=== PATIENT | female | born 1965 | race Caucasian/White ===

== ENCOUNTER 2020-07-28 08:37 | Outpatient (REF) | payer MEDICARE, OTHER, SELFPAY | END 2020-07-28 08:38 | disposition home or self-care (01) | LOC: HO.HMGCLDS 08:37 | PROVIDERS: PCP Internal Medicine; Visit Provider Internal Medicine | DX: Z20.828 Contact with and (suspected) exposure to other viral communicable diseases (principal) | CPT/HCPCS: 87635 ==

== ENCOUNTER 2020-10-17 06:31 | Day surgery (SDC) | payer MEDICARE, OTHER, SELFPAY ==
[2020-10-11 09:45] VITALS: BMI 26.6
--- NOTE | 2020-10-14 08:40 | P.CONAN_ITS ---
Documented by User: Terra Pabon 10/14/20 08:41 HPI - Anesthesia Eval Consult details Narrative: 54yo F for Upper Endoscopy and Colonoscopy [facility] Past Medical History Medical History Arthritis Back pain Family history of abdominal aortic aneurysm (AAA) Family history of brain aneurysm GERD (gastroesophageal reflux disease) History of chronic pain History of postoperative nausea and vomiting Hx of renal calculi Kidney anomaly, congenital Lab test negative for COVID-19 virus Surgical History Surgical History History of bunionectomy History of endometrial ablation Hx of tubal ligation Social History Social History Alcohol intake: current Alcohol intake frequency: a few times a month Smoking Status: Former smoker Tobacco Type: Cigarette Smoked in Last 30 Days: No Smoking Quit Date: age 22 Use of substances other than those prescribed or required for medical reasons: No Advance Directives Information Provided: No Meds Allergies Allergy/AdvReac Type Severity Reaction Status Date / Time hydrocodone [From VICODIN] Allergy Severe HALLUCINATI Verified 10/11/20 10:03 ONS NARCOTICS Allergy Severe VOMITING Uncoded 06/16/20 15:49 opioids Allergy Severe Vomiting Uncoded 10/11/20 10:03 seasonal Allergy Intermediate Itchy Eyes Uncoded 10/11/20 10:03 Home Medications Medication Instructions Recorded Confirmed Type gabapentin 600 mg PO TID 10/11/20 10/11/20 History omeprazole 40 mg PO Q2D 10/11/20 10/11/20 History Exam Exam Date and Time: October 14, 2020 0840 Height,Weight and Vital Signs: Height 5 ft 4 in Weight 70.307 kg Assessment and Plan Assessment Anesthesia Assessment: Chart Reviewed Documented by User: Brendan Nichols 10/17/20 07:13 [facility] Past Medical History Medical History Arthritis Back pain Family history of abdominal aortic aneurysm (AAA) Family history of brain aneurysm GERD (gastroesophageal reflux disease) History of chronic pain History of postoperative nausea and vomiting Hx of renal calculi Kidney anomaly, congenital Lab test negative for COVID-19 virus Surgical History Surgical History History of bunionectomy History of endometrial ablation Hx of tubal ligation Social History Social History Alcohol intake: current Alcohol intake frequency: a few times a month Smoking Status: Former smoker Tobacco Type: Cigarette Smoked in Last 30 Days: No Smoking Quit Date: age 22 Use of substances other than those prescribed or required for medical reasons: No Advance Directives Information Provided: No Meds Allergies Allergy/AdvReac Type Severity Reaction Status Date / Time hydrocodone [From VICODIN] Allergy Severe HALLUCINATI Verified 10/11/20 10:03 ONS NARCOTICS Allergy Severe VOMITING Uncoded 06/16/20 15:49 opioids Allergy Severe Vomiting Uncoded 10/11/20 10:03 seasonal Allergy Intermediate Itchy Eyes Uncoded 10/11/20 10:03 Home Medications Medication Instructions Recorded Confirmed Type gabapentin 600 mg PO TID 10/11/20 10/11/20 History omeprazole 40 mg PO Q2D 10/11/20 10/11/20 History Exam Airway Mallampati Class: II TM Dist: >3cm Neck ROM: Full Loose/Missing/Broken Teeth: No Heart: rrr+s1s2 Lungs: cta b/l Assessment and Plan Assessment Anesthesia Assessment: Anesthesia Plan Discussed, PAT Visit and Chart Reviewed Final Anesthetic Review NPO: Yes ASA Class: II Final Preanesthetic Review: No Changes in Pt Med Stat, Meds/Allgs Chart Reviewed, Consent Obtained/Reviewed and Anes Risks/Benef Reviewed Patient Risk: Low Procedure Risk: Low Assessment/Block/Sedation in SS: Assess/Block/Sedation-SS Anesthetic Plan Anesthetic Plan: MAC: and Agree w/ Assess. and Plan Disposition: Standard PACU
[2020-10-17 07:01] VITALS: BP 114/79; PULSE 84; RESP 16; TEMP 36.2; O2SAT 97; BMI 25.7
[2020-10-17] MEDS: Lactated Ringers 1,000 ML 50 ML IVCONT (07:09)
[2020-10-17 08:25] VITALS: BP 116/72; PULSE 77; RESP 16; TEMP 36.1; O2SAT 100
--- NOTE | 2020-10-17 08:29 | PM.OP ---
Brief Operative Note Date of Service: 10/17/20 Pre-op diagnosis: GERD, Screening Post-op diagnosis: other (Hiatal hernia, Gastritis, Diverticulosis) Procedure: EGD with biopsies, Colonoscopy to cecum and TI Surgeon: Silvio Stauffer Anesthesia: MAC Estimated blood loss (mL): 3.0 Pathology: other (A. Gastric antrum B. EG JUnction at 36cm) Condition: stable Disposition: PACU
[2020-10-17 08:40] VITALS: BP 123/80; PULSE 72; RESP 17; TEMP 36.3; O2SAT 99
--- NOTE | 2020-10-17 08:57 | OP_ITS ---
SURGEON: Silvio Stauffer MD INDICATIONS: The patient presents for evaluation of gastroesophageal reflux and colorectal cancer screening. Full consent has been obtained from her for this, including risks of bleeding and perforation. PREOPERATIVE DIAGNOSIS: POSTOPERATIVE DIAGNOSIS: PROCEDURE PERFORMED: Esophagogastroduodenoscopy with biopsies and colonoscopy to cecum and terminal ileum. ESTIMATED BLOOD LOSS: COMPLICATIONS: ANESTHESIA: Monitored anesthesia care. ASSISTANTS: SPECIMENS: PREOPERATIVE DIAGNOSES: Colorectal cancer screening and gastroesophageal reflux. POSTOPERATIVE DIAGNOSES: Colorectal cancer screening and gastroesophageal reflux, small hiatal hernia, gastritis, diverticulosis, and internal hemorrhoids. DESCRIPTION OF PROCEDURE: The patient was placed in the left lateral decubitus position. The Olympus video gastroscope was passed in the posterior oropharynx and upper esophagus under direct vision. The scope was passed slowly into the distal esophagus. The gastroesophageal junction appeared at 36 cm. There was a very minimal irregularity, but no evidence of any esophagitis nor any definitive evidence of Negron's esophagus. The scope was advanced to the pylorus and duodenum was cannulated to the descending portion. The duodenum including the bulb appeared normal without mass or ulceration. The scope was withdrawn back in the stomach. The gastric antrum and body had changes consistent with gastritis with some areas of edema, mild friability, and some erythema. There is no evidence of any erosions or ulceration. There was good peristalsis. Biopsies were obtained from the antrum. The scope was retroflexed, visualizing the proximal stomach carefully, which appeared normal, without any sign of mass or ulceration. The scope was straightened and withdrawn back to the esophagus. A small hiatal hernia was visible. Biopsies were obtained at the EG junction at 36 cm. Proximal to this, the esophageal mucosa appeared normal. The scope was withdrawn from the patient. She was turned around for colonoscopy. The digital rectal exam revealed no abnormalities. The Olympus video pediatric colonoscope was entered into the rectum and advanced easily to the cecum. Once in the cecum, I did identify normal-appearing cecal pouch with appendiceal orifice and a normal-appearing ileocecal valve. The terminal ileum was cannulated and appeared normal. The scope was withdrawn back in the colon. The entire cecum and ileocecal valve appeared normal. The scope was slowly withdrawn assessing all mucosal surfaces carefully. Preparation was excellent. I did not visualize any sign of polyps, colitis, or angiodysplasia. There was a mild amount of sigmoid diverticulosis. In the rectum, scope was retroflexed visualizing minimal internal hemorrhoids, but no other pathology. The rectal mucosa appeared normal. The scope was straightened and withdrawn from the patient. She has tolerated the procedure well and was returned to the recovery area in stable condition. IMPRESSION: 1. Small hiatal hernia, gastroesophageal reflux. 2. Gastritis. 3. Diverticulosis. 4. Internal hemorrhoids. PLAN: The results of the biopsy will be checked. I have advised her to use her omeprazole on a daily basis to see if that gives her better symptomatic relief of her reflux. I do not think the H pylori, if it is present, would need to be treated unless she develops other upper GI symptoms. She was advised to stay off all aspirin and NSAIDs if possible. I would recommend a repeat colonoscopy in 10 years. I advised her to see me in 2 to 3 months for a followup visit. MD ABUNDIO Quesada/AMADA / [phone]
--- NOTE | 2020-10-17 09:23 | HO.POSTANES ---
Post Anesthesia Evaluation Post Anesthesia Evaluation Vital Signs: Vital Signs Temp Pulse Resp BP Pulse Ox 10/17/20 08:40 97.4 F 72 17 123/80 99 10/17/20 08:25 97.0 F 77 16 116/72 100 10/17/20 07:01 97.2 F 84 16 114/79 97 Anesthesia: Monitored Mental Status: Awake Pain Control: Satisfactory Nausea/Vomiting: None Hydration: Adequate Anesthesia-Related Issues: No Anes. Related Issues
== END 2020-10-17 09:06 | disposition home or self-care (01) ==
PROVIDERS: PCP Internal Medicine; Visit Provider Internal Medicine
PROC: (CPT 45378; principal; 2020-10-17 07:30)
DX: Z12.11 Encounter for screening for malignant neoplasm of colon (principal); K57.30 Diverticulosis of large intestine without perforation or abscess without bleeding; K64.8 Other hemorrhoids; K21.9 Gastro-esophageal reflux disease without esophagitis; K29.50 Unspecified chronic gastritis without bleeding; K44.9 Diaphragmatic hernia without obstruction or gangrene; G90.59 Complex regional pain syndrome I of other specified site; Q60.0 Renal agenesis, unilateral; Z79.899 Other long term (current) drug therapy; Z88.8 Allergy status to other drugs, medicaments and biological substances; Z87.891 Personal history of nicotine dependence
CPT/HCPCS: 45378; 43239; 88305; 88342; J1100; J2405

== ENCOUNTER 2020-11-09 15:53 | Outpatient (REF) | payer MEDICARE, OTHER, SELFPAY | END 2020-11-09 15:54 | disposition home or self-care (01) | LOC: HO.LAB 15:53 | PROVIDERS: Visit Provider Internal Medicine | DX: Z20.822 Contact with and (suspected) exposure to COVID-19 (principal) | CPT/HCPCS: 36415; C9803; U0003; U0005 ==

== ENCOUNTER 2021-01-03 15:36 | Outpatient (REF) | payer MEDICARE, OTHER, SELFPAY ==
[2021-01-03 16:05] LABS: COVID-19 Test Negative (Negative); IDNOW Serial# 08D9AD1C
== END 2021-01-03 15:37 | disposition home or self-care (01) ==
LOC: HO.LAB 15:36
PROVIDERS: Visit Provider Internal Medicine
DX: Z20.822 Contact with and (suspected) exposure to COVID-19 (principal)
CPT/HCPCS: 36415; 87635; C9803

== ENCOUNTER 2021-02-15 08:11 | Outpatient (REF) | payer MEDICARE, OTHER, SELFPAY ==
[2021-02-15 11:35] LABS: Glucose Urine UA NEG (NEG); Leukocyte Esterase Urine NEG (NEG); Nitrite Urine NEG (NEG); PH 5.5 (5.0-8.0); Specific Gravity - Urine >= 1.030 (1.005-1.025); Urine Blood NEG (NEG); Urine Ketones NEG (NEG); Urine Protein NEG (NEG-TRACE)
[2021-02-15 11:37] LABS: Appearance Urine CLEAR; Color Urine YELLOW
[2021-02-15 11:43] LABS: Hematocrit 45.5 % (37-47); Hemoglobin 14.7 g/dl (12.0-16.0); Mean Corpuscular HGB Conc 32.3 g/dl (31.0-35.0); Mean Corpuscular Hemoglobin 27.3 pg (27.0-33.0); Mean Corpuscular Volume 84.6 fL (80-98); Mean Platelet Volume 12.2 fL (9.4-12.3); Platelet Count 251 X10*3/uL (160-400); Red Blood Count 5.38 X10*6/uL (4.20-5.50); Red Cell Distribution Width 13.2 % (11.0-16.0); White Blood Count 5.8 X10*3/uL (4.8-10.8)
[2021-02-15 11:51] LABS: Mucus Urine 2+ /LPF; RBC Urine 0-2 /HPF (0); Squamous Epithelial Cell Urine 1+ /LPF; WBC Urine 0-2 /HPF (0-4)
[2021-02-15 13:01] LABS: Alanine Aminotransferase 19 U/L (0-31); Albumin Level 4.3 g/dL (3.5-5.0); Alkaline Phosphatase 74 U/L (39-117); Anion Gap 11 (12-20); Aspartate Amino Transferase 13 U/L (5-31); Bilirubin Total 0.5 mg/dL (0.0-1.0); Blood Urea Nitrogen 12 mg/dL (9-16); C Reactive Protein 0.38 mg/dL (< or = 0.50); Calcium 9.4 mg/dL (8.4-10.2); Carbon Dioxide 30 mmol/L (22-29); Chloride 105 mmol/L (96-108); Cholesterol 234 mg/dL; Estimated Glomerular Filt Rate > 60; Glucose Fasting 85 mg/dL (60-99); HDL Cholesterol 65 mg/dL; LDL Cholesterol Calculated 147 mg/dl; Potassium 4.2 mmol/L (3.3-5.1); Rheumatoid Factor < 15.0 IU/mL (<15.0); Sodium 142 mmol/L (135-145); Total Protein 6.9 g/dL (6.5-8.0); Triglycerides 113 mg/dL
[2021-02-15 13:06] LABS: Vitamin D 25-OH Total 27.3 ng/mL (>30)
[2021-02-15 13:12] LABS: Vitamin B12 281 pg/mL (200-900)
[2021-02-16 08:41] LABS: Lyme Abs Screen <0.90 index
[2021-02-16 17:11] LABS: Cyclic Citrullinated Peptide <16 UNITS
[2021-02-17 00:06] LABS: Anti Nuclear Antibody Screen POSITIVE (NEGATIVE)
== END 2021-02-15 08:12 | disposition home or self-care (01) ==
LOC: HO.HMGCLDS 08:11
PROVIDERS: PCP Internal Medicine; Visit Provider Internal Medicine
DX: Z00.00 Encounter for general adult medical examination without abnormal findings (principal); E55.9 Vitamin D deficiency, unspecified; M19.90 Unspecified osteoarthritis, unspecified site
CPT/HCPCS: 36415; 80053; 80061; 81001; 82306; 82607; 85027; 86038; 86039; 86140; 86200; 86431; 86617; 86618

== ENCOUNTER → 2021-02-22 11:10 | Outpatient (BNVA) | payer MEDICARE, OTHER, SELFPAY | PROVIDERS: Visit Provider Student in an Organized Health Care Education/Training Program | DX: R76.8 Other specified abnormal immunological findings in serum (principal) | CPT/HCPCS: 99202 ==

== ENCOUNTER 2021-02-23 08:52 | Outpatient (REF) | payer MEDICARE, OTHER, SELFPAY ==
--- NOTE | ~2021-02-23 | XR_ITS ---
EXAMINATION: XR HAND, RIGHT XR HAND, LEFT CLINICAL INFORMATION: Unspecified osteoarthritis. COMPARISON: 02/01/2014 TECHNIQUE: 3 views of both hands. FINDINGS: No fracture or dislocation. Alignment in both hands is normal. No bony erosions. Cartilage spaces are preserved. Soft tissues are unremarkable. XR/XR hand LT min 3V IMPRESSION: Unremarkable hands.
--- NOTE | ~2021-02-23 | XR_ITS ---
EXAMINATION: XR HAND, RIGHT XR HAND, LEFT CLINICAL INFORMATION: Unspecified osteoarthritis. COMPARISON: 02/01/2014 TECHNIQUE: 3 views of both hands. FINDINGS: No fracture or dislocation. Alignment in both hands is normal. No bony erosions. Cartilage spaces are preserved. Soft tissues are unremarkable. XR/XR hand RT min 3V IMPRESSION: Unremarkable hands.
[2021-02-23 09:48] LABS: MANUAL DIFF FLAG NO
[2021-02-23 09:53] LABS: Basophils Percent Auto 0.8 % (0-2); Eosinophils Absolute Auto 0.2 X10*3/uL (0.0-0.4); Eosinophils Percent Auto 3.1 % (0-4); Hematocrit 44.2 % (37-47); Hemoglobin 14.8 g/dl (12.0-16.0); Imm Gran Abs Auto 0.02 X10*3/uL (0.00-0.03); Imm Gran Pct Auto 0.4 % (0.0-0.4); Lymphocytes Absolute Auto 1.7 X10*3/uL (1.2-4.9); Mean Corpuscular HGB Conc 33.5 g/dl (31.0-35.0); Mean Corpuscular Hemoglobin 27.9 pg (27.0-33.0); Mean Corpuscular Volume 83.4 fL (80-98); Mean Platelet Volume 11.7 fL (9.4-12.3); Monocytes Absolute Auto 0.4 X10*3/uL (0.1-1.2); Monocytes Percent Auto 7.5 % (2-11); Neutrophils Absolute Auto 2.9 X10*3/uL (2.0-8.3); Neutrophils Percent Auto 56.2 % (45-73); Platelet Count 230 X10*3/uL (160-400); Red Cell Distribution Width 13.1 % (11.0-16.0); White Blood Count 5.2 X10*3/uL (4.8-10.8)
[2021-02-23 10:15] LABS: Alanine Aminotransferase 21 U/L (0-31); Albumin Level 4.3 g/dL (3.5-5.0); Alkaline Phosphatase 73 U/L (39-117); Anion Gap 12 (12-20); Aspartate Amino Transferase 16 U/L (5-31); Bilirubin Total 0.5 mg/dL (0.0-1.0); Blood Urea Nitrogen 11 mg/dL (9-16); C Reactive Protein 0.31 mg/dL (< or = 0.50); Calcium 9.6 mg/dL (8.4-10.2); Carbon Dioxide 31 mmol/L (22-29); Chloride 104 mmol/L (96-108); Estimated Glomerular Filt Rate > 60; Glucose Random 87 mg/dL (60-115); Potassium 3.8 mmol/L (3.3-5.1); Sodium 143 mmol/L (135-145)
[2021-02-23 10:37] LABS: Thyroid Stimulating Hormone 1.67 uIU/mL (0.32-4.0)
[2021-02-23 10:59] LABS: Erythrocyte Sedimentation Rate 4 MM/HR (0-20)
[2021-02-24 07:07] LABS: Thyroglobulin Antibodies <1 IU/mL (< or = 1); Thyroid Peroxidase Antibodies <1 IU/mL (<9)
[2021-02-24 14:02] LABS: Beta-2 Microglobulin, Serum 1.76 mg/L (< OR = 2.51)
[2021-02-24 14:25] LABS: Anti DNA DS Antibody <1 IU/mL; Antibody to SS-A Antigen <1.0 NEG AI (<1.0 NEG); Antibody to SS-B Antigen <1.0 NEG AI (<1.0 NEG); SM/Ribonucleoprotein Ab <1.0 NEG AI (<1.0 NEG); Scleroderma 70 Antibody <1.0 NEG AI (<1.0 NEG); Smith Protein <1.0 NEG AI (<1.0 NEG)
[2021-02-24 20:06] LABS: Complement C3 58 mg/dL (83-193)
[2021-02-28 14:46] LABS: PTT (LAC) Screen 33 sec (< OR = 40)
[2021-02-28 15:12] LABS: Cardiolipin IgG Ab <14 GPL; Cardiolipin IgM Ab <12 MPL
== END 2021-02-23 08:53 | disposition home or self-care (01) ==
LOC: HO.LAB 08:52
PROVIDERS: PCP Internal Medicine; Visit Provider Student in an Organized Health Care Education/Training Program
DX: M19.90 Unspecified osteoarthritis, unspecified site (principal); R76.8 Other specified abnormal immunological findings in serum
CPT/HCPCS: 36415; 73130; 80053; 82232; 84443; 85025; 85597; 85613; 85652; 85730; 86140; 86147; 86160; 86225; 86235; 86376; 86800

== ENCOUNTER → 2021-03-28 09:56 | Outpatient (BNVA) | payer MEDICARE, OTHER, SELFPAY | PROVIDERS: PCP Internal Medicine; Visit Provider Student in an Organized Health Care Education/Training Program | DX: R76.8 Other specified abnormal immunological findings in serum (principal) | CPT/HCPCS: 99212 ==

== ENCOUNTER 2021-06-27 08:54 | Outpatient (REF) | payer MEDICARE, OTHER, SELFPAY ==
--- NOTE | ~2021-06-27 | MM_ITS ---
EXAMINATION: MM SCREENING DIGITAL BREAST TOMOSYNTHESIS, BILATERAL CLINICAL INFORMATION: Screening. Asymptomatic. The lifetime risk of breast cancer based on the Tyrer-Cuzick Model is 8%. COMPARISON: Mammography: 04/10/2019, 03/19/2018, 01/22/2017 TECHNIQUE: Digital breast tomosynthesis is performed in both the craniocaudal and mediolateral oblique views along with computer-aided detection (CAD). Synthesized 2D images are generated from the tomosynthesis. FINDINGS: There are scattered areas of fibroglandular density (ACR BI-RADS breast composition Category b). There are no significant masses, abnormal calcifications, or other abnormalities. Breast tissue composition borders on heterogeneously dense. Parenchymal pattern is similar to prior studies. No developing density. No significant changes. MM/MM tomosynthesis screening BI IMPRESSION: No mammographic evidence of malignancy. ASSESSMENT: BI-RADS 1: Negative RECOMMENDATION: Routine annual mammography screening. This patient's information was entered into a reminder system with a target due date for their next mammogram.
== END 2021-06-27 08:55 | disposition home or self-care (01) ==
LOC: HO.MAMMO 08:54
PROVIDERS: Visit Provider Internal Medicine
DX: Z12.31 Encounter for screening mammogram for malignant neoplasm of breast (principal)
CPT/HCPCS: 77063; 77067

== ENCOUNTER 2021-06-29 08:58 | Outpatient (REF) | payer MEDICARE, OTHER, SELFPAY ==
--- NOTE | ~2021-06-29 | XR_ITS ---
EXAMINATION: XR SHOULDER, RIGHT CLINICAL INFORMATION: Pain COMPARISON: None TECHNIQUE: AP external rotation, Grashey, scapular Y, and axillary views of the right shoulder. FINDINGS: The bones and soft tissues are normal. No fracture. Glenohumeral and acromioclavicular alignment is anatomic with normal joint space. No abnormal soft tissue calcifications. XR/XR shoulder RT min 2V IMPRESSION: Normal right shoulder.
== END 2021-06-29 08:59 | disposition home or self-care (01) ==
LOC: HO.HMGCX 08:58
PROVIDERS: PCP Internal Medicine; Visit Provider Internal Medicine
DX: Z13.89 Encounter for screening for other disorder (principal)
CPT/HCPCS: 73030

== ENCOUNTER 2021-09-28 09:36 | Outpatient (REF) | payer MEDICARE, OTHER, SELFPAY | END 2021-09-28 09:37 | disposition home or self-care (01) | LOC: HO.HMGCLDS 09:36 | PROVIDERS: Visit Provider Internal Medicine | DX: Z20.822 Contact with and (suspected) exposure to COVID-19 (principal) | CPT/HCPCS: C9803; U0003; U0005 ==

== ENCOUNTER 2022-11-24 07:48 | Outpatient (REF) | payer MEDICARE, OTHER, SELFPAY ==
--- NOTE | ~2022-11-24 | MM_ITS ---
EXAMINATION: MM SCREENING DIGITAL BREAST TOMOSYNTHESIS, BILATERAL CLINICAL INFORMATION: Screening. Asymptomatic. The lifetime risk of breast cancer based on the Tyrer-Cuzick Model is 7%. COMPARISON: Mammography: 06/27/2021, 04/10/2019, 03/19/2018 TECHNIQUE: Digital breast tomosynthesis is performed in both the craniocaudal and mediolateral oblique views along with computer-aided detection (CAD). Synthesized 2D images are generated from the tomosynthesis. Additional left MLO view is provided. FINDINGS: There are scattered areas of fibroglandular density (ACR BI-RADS breast composition Category b). Breast tissue composition borders on heterogeneously dense. No developing density or architectural abnormality. There are no significant masses, abnormal calcifications, or other abnormalities. The axilla and skin contours are unremarkable. MM/MM tomosynthesis screening BI IMPRESSION: No mammographic evidence of malignancy. ASSESSMENT: BI-RADS 1: Negative RECOMMENDATION: Routine annual mammography screening. This patient's information was entered into a reminder system with a target due date for their next mammogram.
== END 2022-11-24 07:49 | disposition home or self-care (01) ==
LOC: HO.MAMMO 07:48
PROVIDERS: PCP Internal Medicine; Visit Provider Internal Medicine
DX: Z12.31 Encounter for screening mammogram for malignant neoplasm of breast (principal)
CPT/HCPCS: 77063; 77067

== ENCOUNTER 2023-01-09 09:49 | Outpatient (REF) | payer MEDICARE, OTHER, SELFPAY ==
[2023-01-09 11:27] LABS: MANUAL DIFF FLAG NO
[2023-01-09 11:37] LABS: Basophils Absolute Auto 0.1 X10*3/uL (0.0-0.2); Eosinophils Absolute Auto 0.3 X10*3/uL (0.0-0.4); Eosinophils Percent Auto 4.9 % (0-4); Hemoglobin 15.5 g/dl (12.0-16.0); Imm Gran Abs Auto 0.01 X10*3/uL (0.00-0.03); Imm Gran Pct Auto 0.2 % (0.0-0.4); Lymphocytes Absolute Auto 2.1 X10*3/uL (1.2-4.9); Lymphocytes Percent Auto 35.7 % (20-40); Mean Corpuscular HGB Conc 33.7 g/dl (31.0-35.0); Mean Corpuscular Hemoglobin 27.8 pg (27.0-33.0); Mean Corpuscular Volume 82.4 fL (80.0-98.0); Mean Platelet Volume 11.9 fL (9.4-12.3); Monocytes Absolute Auto 0.4 X10*3/uL (0.1-1.2); Monocytes Percent Auto 7.4 % (2-11); Neutrophils Percent Auto 50.8 % (45-73); Platelet Count 224 X10*3/uL (160-400); Red Blood Count 5.58 X10*6/uL (4.20-5.50); Red Cell Distribution Width 13.2 % (11.0-16.0); White Blood Count 5.9 X10*3/uL (4.8-10.8)
[2023-01-09 12:43] LABS: Alanine Aminotransferase 13 U/L (0-31); Albumin Level 4.5 g/dL (3.5-5.0); Alkaline Phosphatase 68 U/L (39-117); Anion Gap 13 (12-20); Aspartate Amino Transferase 14 U/L (5-31); Bilirubin Total 0.7 mg/dL (0.0-1.0); Blood Urea Nitrogen 11 mg/dL (9-16); Calcium 9.8 mg/dL (8.4-10.2); Carbon Dioxide 27 mmol/L (22-29); Chloride 106 mmol/L (96-108); Cholesterol 264 mg/dL; Estimated Glomerular Filt Rate > 60; Glucose Fasting 77 mg/dL (60-99); HDL Cholesterol 72 mg/dL; LDL Cholesterol Calculated 169 mg/dl; Potassium 4.2 mmol/L (3.3-5.1); Sodium 142 mmol/L (135-145); Total Protein 7.1 g/dL (6.5-8.0); Triglycerides 118 mg/dL
[2023-01-09 12:46] LABS: TSH reflex Free T4 1.78 uIU/mL (0.32-4.0); Vitamin D 25-OH Total 53.6 ng/mL (>30)
== END 2023-01-09 09:50 | disposition home or self-care (01) ==
LOC: HO.HMGCLDS 09:49
PROVIDERS: PCP Internal Medicine; Visit Provider Internal Medicine
DX: Z00.00 Encounter for general adult medical examination without abnormal findings (principal); E55.9 Vitamin D deficiency, unspecified; E78.5 Hyperlipidemia, unspecified
CPT/HCPCS: 36415; 80053; 80061; 82306; 84443; 85025

== ENCOUNTER → 2024-01-22 08:30 | Outpatient (BNV) | payer MEDICARE, OTHER, SELFPAY | PROVIDERS: PCP Internal Medicine; Visit Provider Radiology Diagnostic Radiology | DX: Z12.31 Encounter for screening mammogram for malignant neoplasm of breast (principal) | CPT/HCPCS: 77063; 77067 ==

== ENCOUNTER 2024-01-22 08:32 | Outpatient (REF) | payer MEDICARE, OTHER, SELFPAY ==
--- NOTE | ~2024-01-22 | MM_ITS ---
EXAMINATION: MM SCREENING DIGITAL BREAST TOMOSYNTHESIS, BILATERAL CLINICAL INFORMATION: Screening. Asymptomatic. COMPARISON: Mammography: 11/24/2022, 06/27/2021, 04/10/2019, 03/19/2018 TECHNIQUE: Digital breast tomosynthesis is performed in both the craniocaudal and mediolateral oblique views along with computer-aided detection (CAD). Synthesized 2D images are generated from the tomosynthesis. FINDINGS: There are scattered areas of fibroglandular density (ACR BI-RADS breast composition Category b). There are no suspicious masses, suspicious grouped calcifications, or areas of architectural distortion in either breast. The parenchymal pattern is stable from prior exams. No skin or axillary abnormalities. MM/MM tomosynthesis screening BI IMPRESSION: No mammographic evidence of malignancy. ASSESSMENT: BI-RADS BI-RADS 1 - Negative RECOMMENDATION: Routine annual mammography screening. 1 year F/U This examination should not preclude the clinical evaluation of a suspicious palpable abnormality. This patient's information was entered into a reminder system with a target due date for their next mammogram.
== END 2024-01-22 08:33 | disposition home or self-care (01) ==
LOC: HO.MAMMO 08:32
PROVIDERS: PCP Internal Medicine; Visit Provider Internal Medicine
DX: Z12.31 Encounter for screening mammogram for malignant neoplasm of breast (principal)
CPT/HCPCS: 77063; 77067

== ENCOUNTER 2024-08-31 11:52 | Outpatient (AMB) | payer MEDICARE, OTHER, SELFPAY ==
--- NOTE | 2024-08-31 12:05 | A.OFFPC_ITS ---
Vital Signs 08/31/24 12:07 Height 5 ft 4 in Weight 134 lb BMI 23.0 BP 130/80 Blood Pressure Location Rt brachial Position Sitting Pulse 70 Pulse Source Pulse Oximeter Pulse Oximetry (%) 98 Oxygen Delivery Method Room Air Intake Visit Reasons: Annual PE Intake Note: Pt is here today for her PE Allergies hydrocodone [From VICODIN] Allergy (Severe, Verified 08/31/24 12:07) HALLUCINATIONS NARCOTICS Allergy (Severe, Uncoded 08/31/24 12:07) VOMITING opioids Allergy (Severe, Uncoded 08/31/24 12:07) Vomiting seasonal Allergy (Intermediate, Uncoded 08/31/24 12:07) Itchy Eyes Medication List - Last Reconciled 08/31/24 by Nubia Magaña MD No Known Home Meds Tobacco use date assessed: 08/31/24 Dental Screening Dental Screen Date: 08/31/24 Did you have a dental visit in the last 12 months?: Yes Did you have a dental problem in the last 6 months where you did not have access to dental care?: No Was dental information given to patient?: Patient has dentist HPI Annual PE HPI Details Pt presents for PE. Pt's brother from brain aneurysm this year. Patient has a very strong family history of brain in the aortic aneurysms. She had negative CT angiogram 4 years ago ordered by neurologist. [facility] Medical History (Updated 08/31/24 @ 12:31 by Nubia Magaña MD) Hyperlipidemia Right shoulder pain Positive SOM (antinuclear antibody) Vitamin D deficiency Annual physical exam Arthritis Back pain GERD (gastroesophageal reflux disease) Kidney anomaly, congenital Hx of renal calculi History of chronic pain Family history of brain aneurysm Family history of abdominal aortic aneurysm (AAA) Surgical History (Updated 08/31/24 @ 12:37 by Nubia Magaña MD) History of endometrial ablation Hx of tubal ligation History of bunionectomy Family History Father No problems noted. Mother Brain aneurysm Maternal Grandmother Schizophrenia Aortic aneurysm Mental health disorder Maternal Grandfather Myocardial infarction Paternal Grandmother Ovarian cancer Daughter No problems noted. Daughter No problems noted. Social History Housing: House Alcohol intake: current Alcohol intake frequency: a few times a month Patient Tobacco Use Status: Former Tobacco user Tobacco use type: Cigarette Cigarettes Per Day: 20 Years Smoked: 3 years e-Cigarette/Vaping Use: Never Used Current occupational status: disabled Cognitive needs: No Hearing needs: No Vision needs: Yes Questionnaire PHQ-9 Over the last 2 weeks, how often have you been bothered by any of the following problems? 1. Little interest or pleasure in doing things: not at all 2. Feeling down, depressed, or hopeless: not at all 3. Trouble falling or staying asleep, or sleeping too much: not at all 4. Feeling tired or having little energy: not at all 5. Poor appetite or overeating: not at all 6. Feeling bad about yourself - or that you are a failure or have let yourself or your family down: not at all 7. Trouble concentrating on things, such as reading the newspaper or watching television: not at all 8. Moving or speaking so slowly that other people could have noticed. Or the opposite - being so fidgety or restless that you have been moving around a lot more than usual: not at all 9. Thoughts that you would be better off or of hurting yourself in some way: not at all Total score: 0 Depression Screening Interpretation: Negative Depression Screening Done: Yes 74740 - PHQ-9 Billing: Yes Source: Developed by Drs. Silvio Anders, Carolina Funez, Julien Eckert and colleagues, with an educational tong from [employer]. Thrive Questionnaire Date Thrive assessed: 01/09/23 I am a: Patient What is your living situation today?: I have a steady place to live Within the past 12 months, did the food you bought not last and you didn't have the money to get more?: Never true Within the past 12 months, did you worry whether your food would run out before you got money to buy more?: Never true Do you have trouble paying for medicines?: No Do you have trouble getting transportation to medical appointments?: No Do you have trouble paying your heating and electricity bill?: No Do you have trouble taking care of your child, family member or friend?: No Do you have trouble with day-to-day activities such as bathing, preparing meals, shopping, managing finances, etc.?: No Are you currently unemployed and looking for a job?: I choose not to answer this question Are you interested in more education?: No Please select the resources that you would like help with: None Currently or been in a relationship where the following occur: No concerns reported THRIVE Score: 0 AUDIT C Alcohol Use Questionnaire (AUDIT-C) 1. How often do you have a drink containing alcohol?: Monthly or less 2. How many drinks containing alcohol do you have on a typical day when you are drinking?: 1 or 2 3. How often do you have six or more drinks on one occasion?: Never Total Score: 1 VIRA-7 AMB Questionnaire IVRA-7 Date VIRA - 7 assessed: 01/09/23 Feeling nervous, anxious, or on edge: 0 = Not at all Not being able to stop or control worryin = Not at all Worrying too much about different things: 1 = Several days Trouble relaxin = Not at all Being so restless that it is hard to sit still: 0 = Not at all Becoming easily annoyed or irritable: 0 = Not at all Feeling afraid as if something awful might happen: 0 = Not at all Total VIRA-7 score (0-4 normal; 5-9 mild; 10-14 moderate; 15-21 severe): 1 Source: Developed by Drs. Silvio Anders, Carolina Funez, Julien Eckert and colleagues, with an educational tong from [employer]. Review of Systems Const All systems reviewed & are unremarkable except as noted in HPI and below Reports no additional complaints Eyes Reports no additional complaints ENT Reports no additional complaints Card Reports no additional complaints Resp Reports no additional complaints GI Reports no additional complaints Reports no additional complaints Physical exam (Primary Care) Vital Signs: Last Vital Signs Pulse 70 08/31/24 12:07 BP 130/80 08/31/24 12:07 Pulse Ox 98 08/31/24 12:07 Oxygen Delivery Method Room Air 08/31/24 12:07 BMI result Body Mass Index 23.0 Tobacco/Smoking Status: Tobacco use Status Tobacco use date assessed 08/31/24 08/31/24 12:09 Patient Tobacco Use Status Former Tobacco user 08/31/24 12:09 Tobacco use type Cigarette 08/31/24 12:09 e-Cigarette/Vaping Use Never Used 08/31/24 12:09 PHQ-9: PHQ-9 Score PHQ-9: Total score 0 08/31/24 12:09 Depression Screening Interpretation: Negative Thrive Assessment: Date of Thrive Assessment Date Thrive assessed 01/09/23 08/31/24 12:09 Currently or been in a relationship where the following occur: No concerns reported Const General: no acute distress HENMT Head: Yes normal to inspection Ears: hearing grossly normal bilaterally General nose exam: Normal external nose present Face and sinus: Yes normal facial exam Mouth: Normal oral and palatal mucosa present Throat: Yes posterior oropharynx normal Eyes General: appearance normal, both eyes and all related structures Neck Neck: Yes no lymphadenopathy and Yes supple Resp Effort & Inspection: normal respiratory effort Auscultation: clear to auscultation bilaterally Cardio Rhythm: regular rhythm Heart sounds: S1 normal heart sound present and S2 normal heart sound present GI Inspection: Yes normal to inspection Palpation (GI): Soft to palpation Percussion: Yes normal to percussion Auscultation: normal bowel sounds Coding Level of Care Code Est Pt Prev Care 40-64y(58824) Diagnoses Annual physical exam Z00.00 Hyperlipidemia E78.5 Hx of colonoscopy Z98.890 Vitamin D deficiency E55.9 Additional Codes PHQ-9 - 99333 - PHQ-9 Billing: Yes ([id number]) Assessment & Plan Assessment & Plan (1) Annual physical exam: Code(s): Z00.00 - Encounter for general adult medical examination without abnormal findings Category: Medical Plan: Well-balanced diet regular physical activity discussed with the patient she is up-to-date with the mammogram Pap smear by flight kitchen manager and colonoscopy (2) Hyperlipidemia: Code(s): E78.5 - Hyperlipidemia, unspecified Category: Medical Plan: Patient will return for fasting blood work if LDL cholesterol is still elevated statin will be started. (3) Hx of colonoscopy: Comment: 09/2020 sanjay Stauffer Code(s): Z98.890 - Other specified postprocedural states Category: Surgical Plan: Up-to-date with colonoscopy (4) Vitamin D deficiency: Code(s): E55.9 - Vitamin D deficiency, unspecified Category: Medical Plan: Continue vitamin-D supplement Orders: Orders CT angio chest aorta Today Z82.49 - Family history of ischemic heart disease and other diseases of the circulatory system Comprehensive [place]. Panel Fast Today E78.5 - Hyperlipidemia, unspecified, Z00.00 - Encounter for general adult medical examination without abnormal find ings Lipid Panel Today E78.5 - Hyperlipidemia, unspecified, Z00.00 - Encounter for general adult medical examination without abnormal findings Complete Blood Count Auto Diff Today E78.5 - Hyperlipidemia, unspecified, Z00.00 - Encounter for general adult medical examination without abnormal findings CT angio abdomen pelvis Today Z82.49 - Family history of ischemic heart disease and other diseases of the circulatory system TSH reflex Free T4 Today E78.5 - Hyperlipidemia, unspecified, Z00.00 - Encounter for general adult medical examination without abnormal findings LDL Cholesterol Direct Today E78.5 - Hyperlipidemia, unspecified, Z00.00 - Encounter for general adult medical examination without abnormal findings Vitamin D 25-OH Total Today E55.9 - Vitamin D deficiency, unspecified Medications: New azelaic acid 15% 1 appl topical BID 50 grams 3RF NS
[2024-08-31 12:07] VITALS: BP 130/80; PULSE 70; O2SAT 98; BMI 23.0
== END 2024-08-31 13:03 | disposition home or self-care (01) ==
PROVIDERS: PCP Internal Medicine; Visit Provider Internal Medicine
DX: Z00.00 Encounter for general adult medical examination without abnormal findings (principal); E78.5 Hyperlipidemia, unspecified; Z98.890 Other specified postprocedural states; E55.9 Vitamin D deficiency, unspecified

== ENCOUNTER → 2024-08-31 11:52 | Outpatient (BNVA) | payer MEDICARE, OTHER, SELFPAY | PROVIDERS: PCP Internal Medicine; Visit Provider Internal Medicine | DX: Z00.00 Encounter for general adult medical examination without abnormal findings (principal); E78.5 Hyperlipidemia, unspecified; E55.9 Vitamin D deficiency, unspecified; Z98.890 Other specified postprocedural states | CPT/HCPCS: 96127; 99396 ==

== ENCOUNTER 2024-09-02 07:51 | Outpatient (REF) | payer MEDICARE, OTHER, SELFPAY ==
[2024-09-02 10:17] LABS: MANUAL DIFF FLAG NO
[2024-09-02 10:26] LABS: Basophils Percent Auto 0.9 % (0-2); Eosinophils Absolute Auto 0.2 X10*3/uL (0.0-0.4); Eosinophils Percent Auto 3.9 % (0-4); Hematocrit 46.9 % (37.0-47.0); Hemoglobin 15.5 g/dl (12.0-16.0); Imm Gran Abs Auto 0.01 X10*3/uL (0.00-0.03); Imm Gran Pct Auto 0.2 % (0.0-0.4); Lymphocytes Absolute Auto 1.9 X10*3/uL (1.2-4.9); Lymphocytes Percent Auto 41.6 % (20-40); Mean Corpuscular Hemoglobin 28.4 pg (27.0-33.0); Mean Corpuscular Volume 85.9 fL (80.0-98.0); Mean Platelet Volume 11.6 fL (9.4-12.3); Monocytes Absolute Auto 0.4 X10*3/uL (0.1-1.2); Monocytes Percent Auto 7.8 % (2-11); Neutrophils Absolute Auto 2.1 x10*3/uL (2.0-8.3); Neutrophils Percent Auto 45.6 % (45-73); Platelet Count 202 X10*3/uL (160-400); Red Blood Count 5.46 X10*6/uL (4.20-5.50); Red Cell Distribution Width 13.1 % (11.0-16.0); White Blood Count 4.6 X10*3/uL (4.8-10.8)
[2024-09-02 11:14] LABS: Alanine Aminotransferase 23 U/L (0-31); Albumin Level 4.2 g/dL (3.5-5.0); Alkaline Phosphatase 56 U/L (39-117); Anion Gap 10 (12-20); Aspartate Amino Transferase 25 U/L (5-31); Bilirubin Total 0.6 mg/dL (0.0-1.0); Blood Urea Nitrogen 13 mg/dL (9-16); Calcium 9.5 mg/dL (8.4-10.2); Carbon Dioxide 30 mmol/L (22-29); Chloride 106 mmol/L (96-108); Cholesterol 245 mg/dL (<200); Estimated Glomerular Filt Rate > 60; Glucose Fasting 85 mg/dL (60-99); HDL Cholesterol 83 mg/dL (>40); LDL Cholesterol Calculated 142 mg/dL (<100); Potassium 3.9 mmol/L (3.3-5.1); Sodium 142 mmol/L (135-145); Triglycerides 101 mg/dL (<150); Vitamin D 25-OH Total 54.7 ng/mL (>30)
[2024-09-03 16:28] LABS: LDL Cholesterol Direct 131 mg/dL (<100)
== END 2024-09-02 07:52 | disposition home or self-care (01) ==
LOC: HO.HMGCLDS 07:51
PROVIDERS: PCP Internal Medicine; Visit Provider Internal Medicine
DX: Z00.00 Encounter for general adult medical examination without abnormal findings (principal); E78.5 Hyperlipidemia, unspecified; E55.9 Vitamin D deficiency, unspecified
CPT/HCPCS: 36415; 80053; 80061; 82306; 83721; 84443; 85025

== ENCOUNTER 2024-11-04 11:37 | Outpatient (REF) | payer MEDICARE, OTHER, SELFPAY ==
[2024-11-04 13:04] LABS: Blood Urea Nitrogen 12 mg/dL (9-16); Estimated Glomerular Filt Rate > 60
== END 2024-11-04 11:38 | disposition home or self-care (01) ==
LOC: HO.LAB 11:37
PROVIDERS: PCP Internal Medicine; Visit Provider Internal Medicine
DX: Z00.00 Encounter for general adult medical examination without abnormal findings (principal)
CPT/HCPCS: 36415; 82565; 84520

== ENCOUNTER 2025-06-04 08:08 | Outpatient (AMB) | payer MEDICARE, OTHER, SELFPAY ==
--- OUTSIDE RECORDS SUMMARY | 2023-12-05 11:00 | XMS_ITS ---
[facility] Organization [facility] Address [address] [place] [address] Care Team Providers Care Money Position Officer Name Role Phone Nubia Magaña MD Primary Care Provider Tina Sanchez [phone] Encounters Encounter Location Date Provider Diagnosis [address] [address] 12/05/2023 Tina Castanon Plan Of Treatment No Information Progress Notes * Norma PHILLIP VDOB:1965 (59 yo F)Acc No.[id number]:12/05/2023 Progress Note Patient: Norma DAS V Provider: Joon Castanon DPM :1965 A ge:58 Y S ex:Female Date:12/05/2023 [address] [id number] Pcp:Nubia Magaña MD Subjective: * Chief Complaints: * * Medical History: Objective: * Vitals: Assessment: Plan: * Treatment: * Images: * The named appointment provid er may or may not be the originator of this progress note, and it is not deemed complete until electronically signed by the appointment provider. Sign off status: Pending * Provider: Joon Castanon DPM Date: 12/05/2023 Generated for Marandai yonatan/Fabuck/eTransmitting on: 0 06/04/2025 08:19 AM EDT
[2025-06-04 08:10] VITALS: BP 118/74; PULSE 75; RESP 18; TEMP 36.8; O2SAT 98; BMI 23.9
--- NOTE | 2025-06-04 08:10 | MHC.PC.OV ---
Vital Signs 06/04/25 08:10 Height 5 ft 4 in Weight 139 lb BMI 23.9 BP 118/74 Blood Pressure Location Lt brachial Position Sitting Respiration 18 Pulse 75 Pulse Source Pulse Oximeter Temp 98.3 F Temp Source Oral Pulse Oximetry (%) 98 Oxygen Delivery Method Room Air Intake Visit Reasons: ED follow up Intake Note: Pt is here today for ER follow up visit. Pt went to ER due to L foot injury pt also noticed lump behind her knee. Allergies hydrocodone (From VICODIN) Allergy (Severe, Verified 06/04/25 08:13) HALLUCINATIONS NARCOTICS Allergy (Severe, Uncoded 06/04/25 08:13) VOMITING opioids Allergy (Severe, Uncoded 06/04/25 08:13) Vomiting seasonal Allergy (Intermediate, Uncoded 06/04/25 08:13) Itchy Eyes Tobacco use date assessed: 06/04/25 Dental Screening Dental Screen Date: 06/04/25 Did you have a dental visit in the last 12 months?: Yes Did you have a dental problem in the last 6 months where you did not have access to dental care?: No Was dental information given to patient?: Patient has dentist HPI ED follow up HPI Details Pt presents for f/u ED visit for L foot injury. She dropped a heavy object on her left foot 3 weeks ago. Patient went to the urgent care had negative x-ray but developed swelling and bruising over the dorsum of the left foot. Patient has been elevating her leg and has been walking with only slight discomfort [facility] Medical History Hyperlipidemia Right shoulder pain Positive SOM (antinuclear antibody) Vitamin D deficiency Annual physical exam Arthritis Back pain GERD (gastroesophageal reflux disease) Kidney anomaly, congenital Hx of renal calculi History of chronic pain Family history of brain aneurysm Family history of abdominal aortic aneurysm (AAA) Surgical History History of endometrial ablation Hx of tubal ligation History of bunionectomy Family History Father No problems noted. Mother Brain aneurysm Maternal Grandmother Schizophrenia Aortic aneurysm Mental health disorder Maternal Grandfather Myocardial infarction Paternal Grandmother Ovarian cancer Daughter No problems noted. Daughter No problems noted. Social History Housing: House Alcohol intake: current Alcohol intake frequency: a few times a month Patient Tobacco Use Status: Former Tobacco user Tobacco use type: Cigarette Cigarettes Per Day: 20 Years Smoked: 3 years Packs per year/per ci.00 e-Cigarette/Vaping Use: Never Used service: No Current occupational status: disabled Cognitive needs: No Hearing needs: No Vision needs: Yes Questionnaire Thrive Questionnaire Date Thrive assessed: 06/04/25 I am a: Patient What is your living situation today?: I have a steady place to live Within the past 12 months, did the food you bought not last and you didn't have the money to get more?: Never true Within the past 12 months, did you worry whether your food would run out before you got money to buy more?: Never true Do you have trouble paying for medicines?: No Do you have trouble getting transportation to medical appointments?: No Do you have trouble paying your heating and electricity bill?: No Do you have trouble taking care of your child, family member or friend?: No Do you have trouble with day-to-day activities such as bathing, preparing meals, shopping, managing finances, etc.?: No Are you currently unemployed and looking for a job?: I choose not to answer this question Are you interested in more education?: No Please select the resources that you would like help with: None Currently or been in a relationship where the following occur: No concerns reported THRIVE Score: 0 AUDIT C Alcohol Use Questionnaire (AUDIT-C) 1. How often do you have a drink containing alcohol?: Monthly or less 2. How many drinks containing alcohol do you have on a typical day when you are drinking?: 1 or 2 3. How often do you have six or more drinks on one occasion?: Never Total Score: 1 VIRA-7 AMB Questionnaire VIRA-7 Date VIRA - 7 assessed: 06/04/25 Feeling nervous, anxious, or on edge: 0 = Not at all Not being able to stop or control worryin = Not at all Worrying too much about different things: 0 = Not at all Trouble relaxin = Not at all Being so restless that it is hard to sit still: 0 = Not at all Becoming easily annoyed or irritable: 0 = Not at all Feeling afraid as if something awful might happen: 0 = Not at all Total VIRA-7 score (0-4 normal; 5-9 mild; 10-14 moderate; 15-21 severe): 0 Source: Developed by Drs. Silvio Anders, Carolina Funez, Julien Eckert and colleagues, with an educational tong from [employer]. VIRA-7 Assessment Billing VIRA-7 Assessment Tool: VIRA-7 Assessment 58498 Review of Systems Const All systems reviewed & are unremarkable except as noted in HPI and below ENT Reports no additional complaints Card Reports no additional complaints Resp Reports no additional complaints GI Reports no additional complaints Physical exam (Primary Care) Vital Signs: Last Vital Signs Temp 98.3 F 06/04/25 08:10 Pulse 75 06/04/25 08:10 Resp 18 06/04/25 08:10 BP 118/74 06/04/25 08:10 Pulse Ox 98 06/04/25 08:10 Oxygen Delivery Method Room Air 06/04/25 08:10 BMI result Body Mass Index 23.9 Tobacco/Smoking Status: Tobacco use Status Tobacco use date assessed 06/04/25 06/04/25 08:18 Patient Tobacco Use Status Former Tobacco user 06/04/25 08:18 Tobacco use type Cigarette 06/04/25 08:18 e-Cigarette/Vaping Use Never Used 06/04/25 08:18 Thrive Assessment: Date of Thrive Assessment Date Thrive assessed 06/04/25 06/04/25 08:18 Currently or been in a relationship where the following occur: No concerns reported Const General: no acute distress Resp Effort & Inspection: normal respiratory effort Auscultation: clear to auscultation bilaterally Cardio Rhythm: regular rhythm Heart sounds: S1 normal heart sound present and S2 normal heart sound present Extrem Other: There is a soft tissue swelling tenderness and extensive ecchymosis over left foot. Left ankle has full range of motion Coding Level of Care Code Est Pt Level 3 (88000) Diagnoses Injury of left foot S99.922A Additional Codes VIRA-7 Assessment Billing - VIRA-7 Assessment Tool: VIRA-7 Assessment 71910 ([id number]) Assessment & Plan Assessment & Plan (1) Injury of left foot: Code(s): S99.922A - Unspecified injury of left foot, initial encounter Category: Medical Plan: Supportive care discussed with the patient
--- OUTSIDE RECORDS SUMMARY | 2025-06-04 08:19 | XMS_ITS | Patient Health Record ---
Author Organization [facility] Address [address] [place] [address] Care Team Providers Care School Lunch Manager Name Role Phone Nubia Magaña MD Primary Care Provider Silvio Thomas Unavailable [phone] Allergies Allergen (clinical drug ingredient) Drug/Non Drug Allergy documented on EMR Reaction Allergy Type Onset Date Status opiods (uncoded) sensitivity Allergy A ctive Reason For Referral No Information Medications Medication SIG (Take, Route, Fr equency, Duration) Notes Start Date End Date Status Omeprazole 20 MG TAKE 1 CAPSULE BY MO UT EVERY DAY IN THE MORNING for 90 Active Gabapentin 600 MG TAKE 1 TABLET BY CAMILLA TH THREE TIMES A DAY Oral 600 in am and 900 in pm 600 in afternoon Active Omeprazole 40 MG TAKE 1 CAPSULE BY MO UTH EVERY DAY Oral Active Immunizations Vaccine Route Administration Date Status Comme nts Influenza Unknown 06/30/2019 Administered Influenza Unknown 06/30/2020 Administered Social History Tobacco Use: Social History Observation Description Date Details (start date - stop date) Former Smoker NA - NA Tobacco Use/Smoking Question Answer Notes Patient is a former smoker When did you stop smoking? age 22 How long has it been since you last smoked? > 10 years Alcohol Screen Question Answer Notes Did you have a drink contain ing alcohol in the past year? Yes How often did you have a dri nk containing alcohol in the past year? Never (0 point) How many drinks did you have on a typical day when you were drinking in the past year? 1 or 2 drinks (0 point) How often did you have 6 or more drinks on one occasion in the past year? Never (0 point) Points 0 Interpretation Negative Section Notes: Nonsmoker; no sig alcohol Nonsmoker; no sig alcohol Problems Problem Type SNOMED Code ICD Code Onset Dates Problem Status W/U Status Risk Notes Problem 428854989 Encounter for screening for malignant neoplasm of colon (Z12.11) Active confirmed Problem Gastroesophageal reflux disease (289164560) Gastroesophageal reflux disease (K21.9) Active confirmed Problem 203890625 Gastroesophageal reflux disease, esophagitis presence not specified (K21.9) Active confirmed Plan Of Treatment Future Test Test Name Order Date UPPER GI ENDOSCOPY 03/16/2020 COLONOSCOPY 03/16/2020 Insurance Providers Payer Name Payer Address Payer Phone Subscriber Number Group Number Insured Name Patient Relationship to Insured Coverage Start Date Coverage End Date MEDICARE OF [place] [address] [place] [address] [phone] [id number] MARJANDANIIMY Self - patient is the insured [facility] [address] [place] [address] [phone] [id number] MARJAN, OBED Self - patient is the insured Medical (General) History Medical History History ICD Code Kidney stones Complex Regional Pain Syndrome(CRPS)-- L eft foot , leg and back GERD--EGD 09/2020--small hiat al hernia, minimal changes of reflux and gastritis--- biopsies negative for Negron's esophagus and H. 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
--- OUTSIDE RECORDS SUMMARY | 2025-06-04 08:20 | XMS_ITS | Patient Health Record ---
Author Organization [facility] yanet [facility] Address [address] [place] [address] Care Team Providers Care Manager Inventory Control Name Role Phone Nubia Magaña MD Primary Care Provider Cally Tina Stone Unavailable [phone] Allergies Allergen (clinical drug ingredient) Drug/Non Drug Allergy documented on EMR Reaction Allergy Type Onset Date Status Vicodin very sensitive Drug Allergy Ac tive Reason For Referral No Information Medications Medication SIG (Take, Route, Frequency, Duration) Notes Start Date End Date Status DULoxetine HCl 30 MG 1 capsule Orally On ce a day; Duration: 30 day(s) Not-Harrison ing Omeprazole 40 MG Orally Act serenity Gabapentin 600 MG 1 capsule Orally Thr ee times a day Active Physical Therapy 3-4x per week for 3-4 weeks Not-Taking Crutches Use Daily; Duration: as needed 06/25/2016 Not-Taking Naproxen 375 MG 1 tablet Orally Twic e a day; Duration: 30 Not-Taking Pamelor 25 MG 1 capsule Orally Onc e a day; Duration: 30 Not-Taking Ketamine HCl Not-Harrison ing Diclofenac Not-Takin g Work Note . . . Pt out for 6 wee ks due to post-op complications 10/02/2016 Not-Harrison ing Gabapentin 400 MG TAKE ONE CAPSULE BY MOUTH IN THE AM AND 1 CAP AT NOON WITH 100 MG EACH DOSE FOR TOTAL 500 MG AM AND; Duration: 30 Not-Taking Immunizations Vaccine Route Administration Date Status Comme nts COVID-19 Moderna Vaccine Unknown 02/02/2021 Administere d 1# 01/05/21 Social History Tobacco Use: Social History Observation Description Date Details (start date - stop date) Former Smoker NA - NA Tobacco Use/Smoking Question Answer Notes Are you a: former smoker Additional Findings: Tobacco Non-User Current no n-smoker Alcohol Screen Question Answer Notes Did you have a drink containing alcohol in the p ast year? No Points 0 Interpretation Negative Tobacco use other than smoking: Question Answer Notes Are you an other tobacco user? No Problems Problem Type SNOMED Code ICD Code Onset Dates Problem Status W/U Status Risk Notes Problem Acquired hallux valgus (40817412) Hallux valgus (acquired), left foot (M20.12) Active confirmed Problem CRPS (complex regional pain syndrome), lower limb (G90.529) Active confirmed Plan Of Treatment Pending Test Test Name Order Date ultrasound 06/30/2014 Insurance Providers Payer Name Payer Address Payer Phone Subscriber Number Group Number Insured Name Patient Relationship to Insured Coverage Start Date Coverage End Date Medicare [employer] [address] [place] [address] [id number] Norma Tracy Self - patient is the insured 0 [facility] [address] [place] [address] [id number] Norma Tracy Self - patient is the insured 7 Medical (General) History Medical History History ICD Code Arthritis Back,Hip,and Knee pain Chicken pox Complex regioinal pain syndrome Surgical History Surgery Date(Month/Year) tubal ligation uterine ablation Selvin shane/jamie 07/11/2016 Sympathetic nerve block 10/2017 Spinal cord stimulator trial 01/24/18
== END 2025-06-04 08:50 | disposition home or self-care (01) ==
LOC: HO.HMCC 08:09
PROVIDERS: PCP Internal Medicine; Visit Provider Internal Medicine
DX: S99.922A Unspecified injury of left foot, initial encounter (principal)

== ENCOUNTER → 2025-06-04 08:08 | Outpatient (BNVA) | payer MEDICARE, OTHER, SELFPAY | PROVIDERS: PCP Internal Medicine; Visit Provider Internal Medicine | DX: K21.9 Gastro-esophageal reflux disease without esophagitis (principal); S99.922D Unspecified injury of left foot, subsequent encounter; W20.8XXD Other cause of strike by thrown, projected or falling object, subsequent encounter | CPT/HCPCS: 96127; 99212 ==